=== PATIENT | female | born 1990 | race Caucasian/White ===

== ENCOUNTER 2021-01-29 15:29 | Emergency (ER) | payer MEDICAID ==
[2021-01-29] VITALS (8 sets, daily range): BP systolic 110–128; BP diastolic 49–78
[~2021-01-29] VITALS: Ht 167.6 cm; Wt 131.8 kg
[2021-01-29 17:13] LABS: BASOPHILS % (AUTO) 0.6 % (0.0-2.0); EOSINOPHILS % (AUTO) 0.7 % (1.0-6.0); LYMPHOCYTES # (AUTO) 2.4 K/uL (1.0-4.8); LYMPHOCYTES % (AUTO) 29.8 % (22.0-44.0); MEAN CORPUSCULAR HEMOGLOBIN 16.3 pg (26.0-34.0); MEAN CORPUSCULAR HGB CONC 29.5 G/dL (31.0-37.0); MEAN CORPUSCULAR VOLUME 55 fL (80-100); MONOCYTES # (AUTO) 0.4 K/uL (0.1-1.0); MONOCYTES % (AUTO) 5.6 % (2.0-9.0); NEUTROPHILS % (AUTO) 63.3 % (40.0-70.0); PLATELET COUNT (AUTO) 239 K/uL (150-450); RED BLOOD CELL COUNT(AUTO) 3.49 MIL/uL (4.00-5.20); RED CELL DISTRIBUTION WIDTH 20.1 % (11.5-14.5)
[2021-01-29 17:16] LABS: HEMATOCRIT 19.3 % (36-46); HEMOGLOBIN 5.7 g/dL (12.0-16.0)
[2021-01-29 17:22] LABS: PROTHROMBIN TIME 10.8 SEC (9.4-11.6)
[2021-01-29 17:29] LABS: ANION GAP 6 mmol/L (8-16); CALCIUM, TOTAL 8.1 mg/dL (8.8-10.5); CARBON DIOXIDE 28 mmol/L (22-29); CHLORIDE 106 mmol/L (98-107); CREATININE 0.79 mg/dL (0.60-1.30); GLOMERULAR FILTR. RATE CALC > 60 mL/min (>60); GLUCOSE,RANDOM 112 mg/dL (70-110); POTASSIUM 3.7 mmol/L (3.5-5.1); SODIUM SERUM 140 mmol/L (136-145); UREA NITROGEN, BLOOD 8 mg/dL (7-18)
[2021-01-29 17:42] LABS: ALANINE AMINOTRANSFERASE 20 U/L (12-78); ALBUMIN 3.3 g/dL (3.4-5.0); ALKALINE PHOSPHATASE 69 U/L (46-116); ASPARTATE AMINOTRANSFERASE 14 U/L (15-37); BILIRUBIN,TOTAL 0.4 mg/dL (0.1-1.0); HCG,QUANTITATIVE < 1 mIU/mL (0-6); TOTAL PROTEIN, SERUM 7.6 g/dL (6.4-8.2)
[2021-01-29 19:57] LABS: COVID AG,FIA SOURCE NASOPHARYNGEAL
[2021-01-29] MEDS ORDERED: IBUPROFEN 600 MG TABLET PO ONE (20:30)
[2021-01-29 20:33] LABS: RETICULOCYTE % (AUTO) 2.4 % (0.5-2.3)
[2021-01-29 20:54] LABS: PLATELET MORPHOLOGY COMMENT GIANT PLTS PRESENT
[2021-01-29 20:56] LABS: PATHOLOGY REVIEW, DIFF YES
[2021-01-29 20:59] LABS: FERRITIN 1 ng/mL (8-252)
[2021-01-29 22:05] LABS: BASOPHILS % (AUTO) 0.8 % (0.0-2.0); EOSINOPHILS % (AUTO) 0.8 % (1.0-6.0); HEMATOCRIT 21.8 % (36-46); LYMPHOCYTES # (AUTO) 3.4 K/uL (1.0-4.8); LYMPHOCYTES % (AUTO) 37.1 % (22.0-44.0); MEAN CORPUSCULAR HEMOGLOBIN 17.8 pg (26.0-34.0); MEAN CORPUSCULAR HGB CONC 29.7 G/dL (31.0-37.0); MEAN CORPUSCULAR VOLUME 60 fL (80-100); MONOCYTES # (AUTO) 0.6 K/uL (0.1-1.0); MONOCYTES % (AUTO) 6.6 % (2.0-9.0); NEUTROPHILS % (AUTO) 54.7 % (40.0-70.0); PLATELET COUNT (AUTO) 252 K/uL (150-450); RED BLOOD CELL COUNT(AUTO) 3.64 MIL/uL (4.00-5.20); RED CELL DISTRIBUTION WIDTH 21.2 % (11.5-14.5)
[2021-01-29 22:23] LABS: HEMOGLOBIN 6.5 g/dL (12.0-16.0)
[2021-01-30 06:11] LABS: PLATELET MORPHOLOGY COMMENT LARGE PLTS PRESENT
== END 2021-01-29 23:01 | disposition home or self-care (01) ==
LOC: EMS 15:35
DX: N93.8 Other specified abnormal uterine and vaginal bleeding (principal); D64.9 Anemia, unspecified; Z20.822 Contact with and (suspected) exposure to COVID-19; Z88.0 Allergy status to penicillin
CPT/HCPCS: 36415; 36430; 80053; 82728; 84702; 85025; 85045; 85610; 85730; 86850; 86900; 86901; 86923; 87426; 99285; P9016